=== PATIENT | female | born 1965 | race Two or more races ===

== ENCOUNTER 2020-10-14 12:47 | Outpatient (REF) | payer OTHER, SELFPAY ==
[2020-10-14 14:33] LABS: Blood Urea Nitrogen 25 mg/dL (9-16); Estimated Glomerular Filt Rate 43
== END 2020-10-14 12:48 | disposition home or self-care (01) ==
LOC: HO.LAB 12:47
PROVIDERS: Visit Provider Psychiatry & Neurology Neurology
DX: R51.9 Headache, unspecified (principal)
CPT/HCPCS: 36415; 82565; 84520

== ENCOUNTER 2020-10-19 14:14 | Outpatient (REF) | payer OTHER, SELFPAY | END 2020-10-19 14:15 | disposition home or self-care (01) | LOC: HO.MRI 14:14 | PROVIDERS: Visit Provider Psychiatry & Neurology Neurology | DX: Z13.89 Encounter for screening for other disorder (principal) ==

== ENCOUNTER 2020-10-20 13:40 | Outpatient (REF) | payer OTHER, SELFPAY ==
--- NOTE | ~2020-10-20 | MR_ITS ---
MR BRAIN WITHOUT AND WITH CONTRAST CLINICAL INFORMATION: Daily headache. COMPARISON: MRI brain 10/15/2011. TECHNIQUE: Multiplanar, multisequence MRI of the brain was obtained before and after the intravenous administration of 10 mL Gadavist. FINDINGS: There is no pathologic intracranial enhancement. Mild T2 signal changes within the bifrontal white matter are nonspecific though can be seen in the setting of migraine headaches. There is no hydrocephalus, extra-axial surface collection, or herniation. The major flow voids at the skull base are preserved. There is no acute infarct on diffusion-weighted imaging. There is no intracranial hemorrhage on the gradient recalled echo acquisition. Partially empty sella. The cerebellar tonsils are normally positioned. The cerebellum and brainstem are normal. The craniocervical junction is normal. Osseous marrow signal intensity is homogenous. Heterogeneous signal within the parotid glands bilaterally unchanged and nonspecific. MR/MR head/brain wo/w con IMPRESSION: - No acute intracranial findings. No enhancing lesions. - Mild T2 signal changes within the bifrontal white matter are nonspecific though can be seen in the setting of migraine headaches.
== END 2020-10-20 13:41 | disposition home or self-care (01) ==
LOC: HO.MRI 13:40
PROVIDERS: Visit Provider Psychiatry & Neurology Neurology
DX: R51.9 Headache, unspecified (principal)
CPT/HCPCS: 70553; A9585

== ENCOUNTER 2021-01-16 14:32 | Outpatient (REF) | payer OTHER, SELFPAY ==
[2021-01-16 15:27] LABS: Rheumatoid Factor < 15.0 IU/mL (<15.0)
[2021-01-16 15:51] LABS: Erythrocyte Sedimentation Rate 23 MM/HR (0-20)
== END 2021-01-16 14:33 | disposition home or self-care (01) ==
LOC: HO.LAB 14:32
PROVIDERS: Visit Provider Psychiatry & Neurology Neurology
DX: R51.9 Headache, unspecified (principal)
CPT/HCPCS: 36415; 82550; 85652; 86431

== ENCOUNTER 2021-03-20 08:20 | Day surgery (SDC) | payer OTHER, SELFPAY ==
[2021-03-20] VITALS (7 sets, daily range): BP systolic 130–157; BP diastolic 68–97; PULSE 67–80; RESP 16; TEMP 36.3; O2SAT 97; BMI 54.6
--- NOTE | ~2021-03-20 | FL_ITS ---
PROCEDURE: XR LUMBAR PUNCTURE CLINICAL INFORMATION: Chronic daily headaches. COMPARISON: MRI brain 10/20/2020. TECHNIQUE: Following explaining fluoroscopy-guided lumbar puncture procedure, benefits and risks, a written consent was obtained. Patient was placed prone and preliminary fluoroscopy imaging was obtained through the lumbar spine. An optimal site was selected of the L4-L5 disc level and marked. The marked site was cleaned and draped in the usual sterile manner. 1% lidocaine was injected at the puncture site overlying the L4-L5 disc level. A 22-gauge spinal needle was then inserted intrathecally under fluoroscopy. After observing fluid return, patient was quickly placed in left lateral decubitus view and opening CSF pressure was obtained. Subsequently, fluid was collected in 4 test tubes. Following collection of CSF, stylet was reintroduced and needle withdrawn. Complete hemostasis was achieved at the puncture site. Sterile Band-Aid was applied postprocedure. Patient tolerated the procedure extremely well. FINDINGS: On preliminary imaging, visualized vertebral heights, alignment and disc heights are normal. There is a needle positioned at the L4-L5 disc level. Opening CSF pressure 19 cm of water. Approximately 30 mL of clear CSF fluid removed. FLUOROSCOPY TIME: 1.5 minutes. DOSE AREA PRODUCT: 11.831 uGy-m2 (microgray-meter squared). FL/FL guided lumbar puncture LP IMPRESSION: Successful fluoroscopy-guided lumbar puncture performed. Approximately 13 mL of clear CSF fluid was collected in 4 test tubes.
[2021-03-20 08:54] LABS: MANUAL DIFF FLAG NO
[2021-03-20 09:01] LABS: Basophils Percent Auto 0.3 % (0-2); Eosinophils Absolute Auto 0.1 X10*3/uL (0.0-0.4); Eosinophils Percent Auto 1.9 % (0-4); Hematocrit 35.2 % (37-47); Hemoglobin 11.3 g/dl (12.0-16.0); INTERNATIONAL NORM RATIO 0.9 (0.9-1.1); Imm Gran Abs Auto 0.02 X10*3/uL (0.00-0.03); Imm Gran Pct Auto 0.3 % (0.0-0.4); Lymphocytes Absolute Auto 1.2 X10*3/uL (1.2-4.9); Lymphocytes Percent Auto 18.4 % (20-40); Mean Corpuscular HGB Conc 32.1 g/dl (31.0-35.0); Mean Corpuscular Volume 90.5 fL (80-98); Mean Platelet Volume 11.3 fL (9.4-12.3); Monocytes Absolute Auto 0.7 X10*3/uL (0.1-1.2); Monocytes Percent Auto 11.5 % (2-11); Neutrophils Absolute Auto 4.4 X10*3/uL (2.0-8.3); Neutrophils Percent Auto 67.6 % (45-73); Platelet Count 234 X10*3/uL (160-400); Prothrombin Time 10.1 SEC (9.9-13.0); Red Blood Count 3.89 X10*6/uL (4.20-5.50); Red Cell Distribution Width 13.3 % (11.0-16.0); White Blood Count 6.5 X10*3/uL (4.8-10.8)
[2021-03-20 09:04] LABS: Partial Thromboplastin Time 29.8 SEC (24.1-38.0)
[2021-03-20 09:14] LABS: Glucose, Whole Blood 253 mg/dL (60-115)
[2021-03-20] MEDS: Acetaminophen 325 MG TABLET 975 MG PO (12:20)
[2021-03-20 13:03] LABS: CSF Appearance Clear, Colorless; CSF Tube # 1
[2021-03-20 13:13] LABS: Glucose CSF 138 mg/dL
[2021-03-20 14:39] LABS: Appearance CSF CLEAR; CSF Tube # 4; Color CSF COLORLESS; Red Blood Cell CSF 86 MM*3; White Blood Cell CSF 3 MM*3
[2021-03-20 14:40] LABS: CSF Monos 19 %; Lymphocytes CSF 80 %; Neutrophils CSF 1 %
== END 2021-03-20 15:40 | disposition home or self-care (01) ==
PROVIDERS: Psychiatry & Neurology Neurology; Visit Provider Radiology Diagnostic Radiology
PROC: 009U3ZZ Drainage of Spinal Canal, Percutaneous Approach (ICD-10-PCS; CPT 62270; principal; 2021-03-20 11:00)
DX: G43.909 Migraine, unspecified, not intractable, without status migrainosus (principal); R51.9 Headache, unspecified; F32.9 Major depressive disorder, single episode, unspecified; I42.9 Cardiomyopathy, unspecified; I10 Essential (primary) hypertension; J45.909 Unspecified asthma, uncomplicated; G47.33 Obstructive sleep apnea (adult) (pediatric); E66.9 Obesity, unspecified; Z79.84 Long term (current) use of oral hypoglycemic drugs; Z79.899 Other long term (current) drug therapy
CPT/HCPCS: 36415; 62328; 82945; 82947; 84157; 85025; 85610; 85730; 87015; 87070; 87205; 89051